=== PATIENT | male | born 1945 | race Caucasian/White ===

== ENCOUNTER 2024-02-09 08:11 | Emergency (ER) | payer MEDICARE, SELFPAY ==
[2024-02-09] VITALS (8 sets, daily range): BP systolic 119–143; BP diastolic 60–74; PULSE 70–77
--- NOTE | 2024-02-09 08:22 | ED.GENMED ---
History of Present Illness
General
Chief Complaint: Fainting/Passed Out
Source: patient
Time Seen by Provider: 02/09/24 08:13
History of Present Illness
History of Present Illness:
78-year-old male with past medical history of coronary artery disease and GERD presenting to the emergency department after a syncopal episode versus orthostasis versus accidental fall. He reports he was in his kitchen making a cup of coffee and
getting ready to eat breakfast when he started to feel lightheaded and unwell and then ended up on the ground. Patient family contacted EMS and by the time patient arrived to the emergency department he states he is feeling fully better. He does
note yesterday he received his Moderna COVID booster and had a mild headache and fatigue since last night. He reports that the headache is fully resolved but still feeling slightly fatigued. He denies any chest pain, palpitations,, abdominal pain,
nausea, vomiting, focal weakness or numbness or any other concerns.
Past History
Past History
ED Past Medical History: CAD, COPD (Lung disease, patient is sure the details), HTN and Hypercholesterolemia; Negative IDDM
ED Past Surgical History: Cardiac (Cardiac stenting)
Social History
Tobacco: Non-smoker
Alcohol: Occasional
Drug: None
Personal:
Living: with family
Employment: Retired
Family History
Family History: Hypertension; Negative Early CAD
Review of Systems
Review of Systems
All Other Systems: ROS reviewed and negative except as documented in HPI and ROS
Phy Exam
Physical Exam
Physical Exam:
GENERAL: Alert , in no apparent distress
HEAD: NCAT
EYE: conjunctiva clear
NECK: Supple
ENT: o/p clr, mmm.
CARDIAC: Regular rate and rhythm
LUNGS: Clear breath sounds bilaterally, no acute respiratory distress, no wheezes/rales/rhonchi
NEUROLOGICAL: Alert and oriented
SKIN: Warm and dry, skin intact.
MUSCULOSKELETAL: well perfused.
PSYCH: Normal and appropriate interaction.
Scores
Heart Failure Risk
Heart Failure Risk Score: Not Applicable
Heart Score for Chest Pain Patients
STEMI patient?: Not applicable
Withdrawal Assessment of Alcohol
Withdrawal Assessment Completed?: Not applicable
Course
Orders/Labs/Results
Orders:
Orders
02/09/24 08:16
EKG [Electrocardiogram (*1)] Urgent
Reason for Study: Syncope
02/09/24 08:17
EKG- Treatment ONCE
02/09/24 08:18
Orthostatic VS- Treatment ONCE
0.9% Sodium Chloride 1000 ml [Nss] 1,000 ml IV BOLUS
02/09/24 08:24
Basic Metabolic Panel Urgent
Complete Blood Count/With Diff Urgent
Abnormal Lab Results
02/09/24
08:24
Absolute Lymphs (auto) 1.1 L 10^3/uL
(1.2-3.4)
Neutrophils % 79.6 H %
(42.2-75.2)
Lymphocytes % 13.2 L %
(20.5-51.1)
BUN 28 H mg/dl
(9-20)
Glucose 104 H mg/dl
(70-99)
02/09/24 08:24
02/09/24 08:24
Vital Signs
Initial and Last Documented VS:
Initial Vital Signs
Temp Pulse Resp BP Pulse Ox
98.3 F 70 18 143/60 96
02/09/24 08:18 02/09/24 08:18 02/09/24 08:18 02/09/24 08:18 02/09/24 08:18
Last Documented Vital Signs
Temp Pulse Resp BP Pulse Ox
98.9 F 75 16 135/69 96
02/09/24 10:45 02/09/24 10:45 02/09/24 10:45 02/09/24 10:45 02/09/24 10:45
MDM/Problems Addressed
Differential Diagnosis Includes:
orthostasis, vasovagal, covid booster reaction, less likely anemia or electrolyte disturbance
MDM/Problems Addressed:
78 year old male with past medical history of coronary artery disease presenting to the emergency department for evaluation after suspected syncope versus accidental fall while in his kitchen. Patient started to feel unwell last night after
receiving COVID booster earlier in the day. I suspect patient's symptoms are likely orthostatic likely related to the COVID booster vaccine reaction. He is hemodynamically stable here and stating he is feeling better. Will check labs,
orthostatics, EKG. 1 L of IV fluids ordered. Anticipate discharge home
*Pulse Oximetry
Patient hypoxic: no
*EKG
Interpreted by ED Provider?: Yes
Heart Rate: 68
Rate: normal
Rhythm: sinus
Ischemia: no ischemia
*Drawing Operator Interpretation
Rate: normal
Rhythm: sinus
*Critical Care Note
Total Time (30-74mins, 75-104mins- exclusive of procedures): Not Applicable
Comment
Comment:
8:56 AM -Labs show a mild prerenal azotemia. Otherwise unremarkable. Will have patient finish the 1 L of IV fluids and reassess. Anticipate discharge home following.
Patient Management
Escalation/DeEscalation of care consider admission/obs:
Patient continues to feel well and in no acute distress. He is hemodynamically stable. now present in the emergency room okay with taking patient home. Aware of return precautions and follow-up recommendations. Stable for discharge.
ED Attending Note
-
Portions of this chart may have been created with voice recognition software.� Occasional wrong word or��sound alike� substitutions may have occurred due to the inherent limitations of voice recognition software.
Discharge Plan
Departure
Patient Disposition: Home (Routine Discharge)
Date of Disposition: 02/09/24
Time of Disposition: 10:20
Patient with high blood pressure during this ER visit?: Yes
Discharge Problem:
Orthostasis, Vaccine reaction
Instructions: Dizziness, Nonvertigo, (DC)
Prescriptions:
No Action
aspirin [Don Chewable Aspirin] 81 MG tablet,chewable
81 mg PO DAILY
atorvastatin 40 MG tablet
40 mg PO QPM Qty: 90 3RF
prasugrel 10 MG tablet
10 mg PO DAILY Qty: 90 3RF
nitroglycerin 0.4 MG tablet, sublingual
0.4 mg sublingual [id number] PRN (Reason: chest pain) Qty: 25 3RF
pantoprazole 40 MG tablet,delayed release (DR/EC)
40 mg PO DAILY
metoprolol tartrate 50 MG tablet
50 mg PO DAILY
valsartan 40 MG tablet
40 mg PO DAILY
prasugrel 10 MG tablet
10 mg PO DAILY
azelastine-fluticasone [Dymista] 23 GM spray,non-aerosol
23 gm NS DAILY
Referrals:
Markus Maldonado MD [Family Provider] -
Interventions
Interventions:
*Risk Screen - Suicide Last Done: 02/09/24 08:23
*General Assessment Last Done: 02/09/24 08:23
*Neglect/Abuse Screening Last Done: 02/09/24 08:23
*ED COVID-19 Vaccine History Last Done: 02/09/24 08:23
*Nursing Disposition Last Done: 02/09/24 10:45
ED- Cardiac Assessment Last Done: 02/09/24 09:19
ED- Neurological Assessment Last Done: 02/09/24 08:28
Discharge Date and Time
Discharge Date/Time: 02/09/24 10:45
Print Language: INDONESIAN
[2024-02-09] MEDS: NSS 1000 IV (08:33)
[2024-02-09 08:48] LABS: % Basophils 0.6 % (0-2); % Eosinophils 1.1 % (0-6); % Immature Granulocytes 0.3 % (0-0.5); % Lymphocytes 13.2 % (20.5-51.1); % Monocytes 5.2 % (1.7-9.3); % Neutrophils 79.6 % (42.2-75.2); Absolute Basophils 0.1 10^3/uL (0-0.2); Absolute Eosinophils 0.1 10^3/uL (0-0.7); Absolute Lymphocytes 1.1 10^3/uL (1.2-3.4); Absolute Monocytes 0.4 10^3/uL (0.1-0.6); Absolute Neutrophils 6.3 10^3/uL (1.4-6.5); Blood Urea Nitrogen 28 mg/dl (9-20); Calcium 8.9 mg/dl (8.4-10.2); Carbon Dioxide 24 mmol/L (22-30); Chloride 106 mmol/L (98-107); Estimated Creatinine Clearance 56 ml/min; Glucose 104 mg/dl (70-99); Hematocrit 41.5 % (39.0-52.0); Hemoglobin 14.1 g/dL (13.0-18.0); Mean Corpuscular Hgb 28.7 pg (27.0-31.0); Mean Corpuscular Volume 84.5 fL (80.0-94.0); Mean Platelet Volume 9.4 fL (7.4-10.4); Nucleated Red Blood Cells % 0 % (-); Platelet Count 159 10^3/uL (130-400); Potassium 4.4 mmol/L (3.5-5.1); Red Blood Cell Count 4.91 10^6/uL (4.70-6.10); Red Cell Dist. Width 14.4 % (11.5-14.5); Sodium 138 mmol/L (135-145); eGFR > 60.00
== END 2024-02-09 10:45 | disposition home or self-care (01) ==
LOC: EMR 08:11
PROVIDERS: Physician Assistant Medical; EMERGENCY PHYSICIAN Student in an Organized Health Care Education/Training Program; FAMILY PHYSICIAN Family Medicine
DX: I95.1 Orthostatic hypotension (principal); T88.1XXA Other complications following immunization, not elsewhere classified, initial encounter; X58.XXXA Exposure to other specified factors, initial encounter; I25.10 Atherosclerotic heart disease of native coronary artery without angina pectoris; I10 Essential (primary) hypertension; E78.00 Pure hypercholesterolemia, unspecified; J44.9 Chronic obstructive pulmonary disease, unspecified; K21.9 Gastro-esophageal reflux disease without esophagitis; Z82.49 Family history of ischemic heart disease and other diseases of the circulatory system; Z95.5 Presence of coronary angioplasty implant and graft
CPT/HCPCS: 99283; 96360; 80048; 85025; 93005

== ENCOUNTER → 2024-11-10 06:48 | Outpatient (REF) | payer MEDICARE, SELFPAY | LOC: RAD 06:48 | PROVIDERS: ATTENDING PHYSICIAN Family Medicine | DX: I73.9 Peripheral vascular disease, unspecified (principal); M79.604 Pain in right leg | CPT/HCPCS: 93922; 93925; 93971 ==

== ENCOUNTER → 2024-11-17 14:43 | Outpatient (REF) | payer MEDICARE, SELFPAY | LOC: HWRCS 14:43 | PROVIDERS: ATTENDING PHYSICIAN Nuclear Medicine Nuclear Cardiology; FAMILY PHYSICIAN Family Medicine | DX: I25.10 Atherosclerotic heart disease of native coronary artery without angina pectoris (principal); R60.9 Edema, unspecified; I35.1 Nonrheumatic aortic (valve) insufficiency | CPT/HCPCS: 93306 ==